=== PATIENT | male | born 1955 | race Caucasian/White ===

== ENCOUNTER 2016-10-29 16:48 | Emergency (ER) | payer OTHER ==
[~2016-10-29] VITALS: Ht 182.9 cm; Wt 90.7 kg
[2016-10-29 16:54] VITALS: BP 168/99
[2016-10-29] MEDS ORDERED: LIPITOR10 MG PO (16:59)
[2016-10-29] MEDS ORDERED: BLOOD PRESSURE PILL (16:59)
== END 2016-10-29 17:27 | disposition home or self-care (01) ==
LOC: ER 16:48
DX: T78.49XA Other allergy, initial encounter (principal); W57.XXXA Bitten or stung by nonvenomous insect and other nonvenomous arthropods, initial encounter; Y93.89 Activity, other specified; Y92.89 Other specified places as the place of occurrence of the external cause; Y99.8 Other external cause status